=== PATIENT | male | born 1960 | race Caucasian/White ===

== ENCOUNTER → 2021-11-30 14:34 | Outpatient (BNVA) | payer MEDICARE, MEDICAID, SELFPAY | PROVIDERS: PCP Family Medicine; Visit Provider Internal Medicine Pulmonary Disease | DX: J43.1 Panlobular emphysema (principal); K21.9 Gastro-esophageal reflux disease without esophagitis; R06.00 Dyspnea, unspecified; R06.02 Shortness of breath; T78.40XA Allergy, unspecified, initial encounter; Z87.891 Personal history of nicotine dependence | CPT/HCPCS: 36415; 82785; 85025; 86003; 99214 ==

== ENCOUNTER 2021-12-09 11:47 | Outpatient (CLI) | payer MEDICARE, MEDICAID, SELFPAY ==
--- NOTE | 2021-12-09 12:55 | PFTS_ITS ---
Date of Study:12/09/21 Date of Dictation: MECHANICS: Forced vital capacity (FVC) is normal. Forced expiratory volume in one second (FEV1) is reduced. FEV1/FVC is reduced. FLOW VOLUME LOOP: Reduced flow at all lung volumes with significant scooping. LUNG VOLUMES: Total lung capacity (TLC) is increased. Residual volume (RV) is creased. DIFFUSING CAPACITY FOR CARBON MONOXIDE: Moderately reduced. INTERPRETATION: The postbronchodilator spirometry is consistent with moderate airflow obstruction. There is no significant postbronchodilator response. Lung volumes are consistent with hyperinflation and air trapping. Gas exchange (DLCO) is moderately reduced. MTDD
== END 2021-12-09 11:48 | disposition home or self-care (01) ==
LOC: RT 11:51
PROVIDERS: PCP Family Medicine; Visit Provider Internal Medicine Pulmonary Disease
DX: J43.1 Panlobular emphysema (principal); F17.210 Nicotine dependence, cigarettes, uncomplicated
CPT/HCPCS: 94060; 94618; 94726; 94729; J7611

== ENCOUNTER → 2022-02-01 10:50 | Outpatient (BNVA) | payer MEDICARE, MEDICAID, SELFPAY | PROVIDERS: PCP Family Medicine; Visit Provider Internal Medicine Pulmonary Disease | DX: R06.00 Dyspnea, unspecified (principal); J43.1 Panlobular emphysema; K21.9 Gastro-esophageal reflux disease without esophagitis; T78.40XA Allergy, unspecified, initial encounter; Z87.891 Personal history of nicotine dependence; G47.34 Idiopathic sleep related nonobstructive alveolar hypoventilation | CPT/HCPCS: 99214 ==

== ENCOUNTER → 2022-05-07 10:02 | Outpatient (BNVA) | payer MEDICARE, MEDICAID, SELFPAY | PROVIDERS: PCP Family Medicine; Visit Provider Internal Medicine Pulmonary Disease | DX: R06.00 Dyspnea, unspecified (principal); J43.1 Panlobular emphysema; K21.9 Gastro-esophageal reflux disease without esophagitis; Z87.891 Personal history of nicotine dependence; G47.33 Obstructive sleep apnea (adult) (pediatric) | CPT/HCPCS: 99214 ==

== ENCOUNTER 2022-07-21 08:40 | Outpatient (CLI) | payer MEDICARE, MEDICAID, SELFPAY ==
--- NOTE | 2022-07-21 08:45 | CT_ITS ---
WS: [id number] LDCT LUNG CANCER SCREENING TECHNIQUE: Noncontrast CT of the chest with coronal and sagittal reformatted images. CLINICAL INFORMATION: lung screening COMPARISON: None. DLP: 79.91 mGy.cm DIvol: Mean CTDIvol: 1.60 (mGy) All CT scans at [facility] use at least one of these dose optimization techniques: automat ed exposure control; mA and/or kV adjustment per patient size (includes targeted exams where dose is matched to clinical indication); or iterative reconstruction. FINDINGS: Advanced chronic emphysematous changes. Bulla formation lung apices LEFT greater than RIGHT. Large bu lla in the LEFT upper lobe measuring 12.8 x 6.7 CM. Normal caliber thoracic aorta. Aortic calcification. No mediastinal or hilar lymphadenopathy. No axil terence lymphadenopathy. Normal GE junction. Evidence of prior hernia repair in the upper abdomen. Mild disc space narrowing lower thoracic spine. Thoracic curve convex LEFT. Postoperative changes lower ce rvical spine partially visualized. Spiculated subpleural nodule RIGHT lower lobe medially measuring 16 mm in maximum dimension on the sa gittal imaging. Recommend further evaluation with PET/CT. Additional noncalcified 8mm nodule in the R IGHT upper lobe along the fissure. CT/CT lung screening [id number] IMPRESSION: LUNG-RADS: 4A-Probably Suspicious FOLLOW UP: PET/CT recommended
== END 2022-07-21 08:41 | disposition home or self-care (01) ==
LOC: RAD 08:40
PROVIDERS: PCP Family Medicine; Visit Provider Internal Medicine Pulmonary Disease
DX: Z12.2 Encounter for screening for malignant neoplasm of respiratory organs (principal); Z87.891 Personal history of nicotine dependence
CPT/HCPCS: 71271

== ENCOUNTER 2022-07-31 11:07 | Outpatient (CLI) | payer MEDICARE, MEDICAID, SELFPAY ==
--- NOTE | 2022-07-31 11:30 | PETR_ITS ---
PROCEDURE INFORMATION: Exam: PET/CT Skull Base to Mid-thigh Exam date and time: 07/31/2022 11:47 AM Age: 62 years old Clinical indication: Abnormal findings; Abnormal CT; Patient HX: HX of kidney cancer; Additional info: Suspicious lesions on CT lung lrads 4a, 07/21 CT lung: LABS AND CLINICAL REPORTS: Glucose: 108 mg/dl Treatment strategy for malignancy (PET staging): Initial Staging (PI) TECHNIQUE: Imaging protocol: Following at least four-hour fasting and following the injection of F-18-FDG, low dose CT images were obtained. Then, PET images were obtained. Attenuation corrected images were constructed using the CT scan. Fused images of PET and CT were reviewed. The standardized uptake values (SUV) reported below are maximum values within a region of interest, expressed in gm/ml. Exam includes orbital meatal line to mid-thigh. Radiopharmaceutical: 14.33 mCi F-18 FDG (Fluorodeoxyglucose), IV. Time of imaging post radiopharmaceutical administration: 45 minutes. Injection site: Not specified. COMPARISON: CT lung screening [id number] 07/21/2022 8:50 AM FINDINGS: Brain: Visualized brain has normal physiologic uptake. Pharynx: No abnormal uptake. Larynx: No abnormal uptake. Lungs, pleura and trachea: Severe emphysema. A bulla in the apex of the left upper lobe is 12 cm. The spiculated subpleural nodule in the right lower lobe medially is not FDG avid. Its SUV max is only 1.8 (series 3, image 60). Heart: Heart size is normal. Mediastinal space: No abnormal uptake. Liver: No abnormal uptake. Gallbladder and bile ducts: Post cholecystectomy. Pancreas: No abnormal uptake. Spleen: No abnormal uptake. Adrenal glands: No abnormal uptake. Kidneys and ureters: Posterior right nephrectomy. Stomach and bowel: Mild colonic diverticulosis without evidence of diverticulitis. The colon is otherwise unremarkable. No acute colonic distention or inflammation. Appendix: The appendix is normal in caliber without surrounding inflammation. Intraperitoneal and retroperitoneal spaces: No free air or free fluid in the abdomen or pelvis. Reproductive: Mild prostate enlargement. Vasculature: No abnormal uptake. Lymph nodes: No abnormal uptake. No lymphadenopathy in the head, neck, chest, abdomen, pelvis or extremities. Bones/joints: No metabolically active areas. Soft tissues: Marked increased FDG uptake in the masseter muscles. SUV max in the right masseter muscle is 11.5 , and SUV max in the left masseter muscle is 8.9. Moderate increased uptake in the temporalis muscles. SUV max in the right temporalis muscle is 8.9. SUV max in the left temporalis muscle is 5.6). The bilateral increased uptake within the muscles of mastication is consistent with clenching of the jaw (bruxism). PET/PET skulltothigh INITIAL [id number] IMPRESSION: 1. The spiculated subpleural nodule in the right lower lobe medially is not FDG avid. Its SUV max is only 1.8 (series 3, image 60). No evidence of lung cancer. 2. Severe bullous emphysema. 3. Post right nephrectomy. 4. Marked bilateral increased FDG uptake in the masseter and temporalis muscles, which is consistent with clenching of the jaw (bruxism).
== END 2022-07-31 11:08 | disposition home or self-care (01) ==
LOC: RAD 08-02 06:15
PROVIDERS: PCP Family Medicine; Visit Provider Internal Medicine Pulmonary Disease
DX: R91.8 Other nonspecific abnormal finding of lung field (principal); J43.9 Emphysema, unspecified; Z90.5 Acquired absence of kidney
CPT/HCPCS: 78815; A9552

== ENCOUNTER → 2022-11-09 13:27 | Outpatient (BNVA) | payer MEDICARE, MEDICAID, SELFPAY | PROVIDERS: PCP Family Medicine; Visit Provider Internal Medicine Pulmonary Disease | DX: J43.1 Panlobular emphysema (principal); K21.9 Gastro-esophageal reflux disease without esophagitis; Z87.891 Personal history of nicotine dependence; G47.33 Obstructive sleep apnea (adult) (pediatric); Z91.09 Other allergy status, other than to drugs and biological substances; R07.9 Chest pain, unspecified | CPT/HCPCS: 99214 ==

== ENCOUNTER 2022-12-17 10:32 | Outpatient (CLI) | payer MEDICARE, MEDICAID, SELFPAY ==
--- NOTE | 2022-12-17 | ECG_ITS ---
[facility] Test Date: 2022-12-17 Pat Name: Madi Warner Department: Room: Gender: Male Engagement Mgr: : 1960 Requested By: Robbie Martell Order Number: [id number] Marko MD: Irish Paredes M.D. Interpretive Statements NAME OF STUDY: EXERCISE SESTAMIBI STRESS TEST INDICATION: Shortness of Breath Baseline blood pressure of 150/89 mm Hg, heart rate 63 beats per minute and oxygen saturation 97%. EKG showed sinus rhythm, normal axis with RSR' in V1 suggestive of RV conduction delay. The patient exercised for 5 minutes and 3 seconds on a standard Daniel protocol. Patient attained a maximum heart rate of 153 beats per minute(96% of the maximum predicted heart rate) with a blood pressure at the peak exercise of 188/126 mm Hg. The EKG at the peak exercise revealed sinus tachycardia with no significant ST-T wave changes. Patient did not have any chest pain or any significant arrhythmis with the exercise During the recovery phase, there were no new changes. Blood pressure at the end of the recovery phase was 146/90 mm Hg with a heart rate of 66 beats per minute. CONCLUSION: 1. Normal EKG response to treadmill exercise. 2. No exercise-induced chest pain or cardiac arrhythmia. 3. Good exercise tolerance, attained a maximum of 7 METs. 4. Baseline hypertension with normal response to exercise. 5. Perfusion scan will be documented separately. Electronically Signed On 12-29-2022 17:53:27 CDT by Irish Paredes M.D. [id number]
[2022-12-17 10:51] VITALS: BMI 28.8
--- NOTE | 2022-12-17 10:52 | NMCV_ITS ---
NM venkata perf SPECT r/s* [id number] Madi Warner Age: 62 Gender: M : 1960 Exam Date: 12/17/2022 11:29 Ordering Phys: Robbie Sunshine MD Technologist: COLBY Castle Exam Location: [facility] Indications: SHORTNESS OF BREATH STRESS TEST Please see separate stress test report in [facility] for full findings IMAGE PROTOCOL Rest/Stress 1 Exercise Day Radiopharmaceutical Dose (mCi) Administration Site Administered by Rest: Tc-99m 10.5 IV Jerome Maxwell, AUTO REFINISHER Sestamibi Stress:Tc-99m 32.5 IV Jerome Maxwell, AUTO REFINISHER Sestamibi Rest: 17-Dec-2022 60 Discovery 630 Stress: 17-Dec-2022 15 Discovery 630 Radiopharmaceutical was injected at 86 % maximum heart rate. Images obtained in supine and prone position. SPECT RESULTS Technical Quality: Excellent Raw Data Analysis: Normal Image Corrections: No attenuation or motion correction applied Summed Stress Score: 2 Summed Rest Score: 2 Summed Difference Score: 1 PERFUSION FINDINGS Small sized perfusion abnormality of mild severity of mid to apical inferior whelan on rest images with improved tracer uptaker in stress images. FUNCTIONAL RESULTS (calculated via Gated SPECT) Stress Image LV EF (%): 59 Stress EDV (mL):103 TID: 1.17 Stress ESV (mL):42 FUNCTIONAL FINDINGS: The left ventricle is normal in size. Transient Ischemia Dilatation of 1.2. The left ventricular ejection fraction is normal with a value of 59%. There is normal left ventricular wall thickening. IMPRESSIONS 1. Myocardial perfusion imaging is normal. Attenuation artifact noted in inferior wall. 2. Overall left ventricular systolic function is normal without regional wall motion abnormalities, LVEF=59%. 3. EKG changes will be reported separately. 4. No coronary ischemia based on this study. Irish Paredes MD (Electronically Signed) Final Date: 25 December 2022 11:10 S
[2022-12-17 12:19] VITALS: BP 146/90; PULSE 64
== END 2022-12-17 10:33 | disposition home or self-care (01) ==
LOC: CDL 10:35
PROVIDERS: PCP Family Medicine; Visit Provider Internal Medicine Pulmonary Disease
DX: R06.02 Shortness of breath (principal); Z87.891 Personal history of nicotine dependence
CPT/HCPCS: 36415; 78452; 93017; 99214; A9500

== ENCOUNTER → 2023-03-11 09:55 | Outpatient (BNVA) | payer MEDICARE, SELFPAY | PROVIDERS: PCP Family Medicine; Visit Provider Internal Medicine Pulmonary Disease | DX: J44.9 Chronic obstructive pulmonary disease, unspecified (principal); Z87.891 Personal history of nicotine dependence; G47.33 Obstructive sleep apnea (adult) (pediatric); Z12.2 Encounter for screening for malignant neoplasm of respiratory organs | CPT/HCPCS: 99214 ==

== ENCOUNTER 2023-04-13 12:00 | Outpatient (CLI) | payer MEDICARE, SELFPAY | END 2023-04-13 12:01 | disposition home or self-care (01) | LOC: SLEEP 04-14 15:07 | PROVIDERS: PCP Family Medicine; Visit Provider Internal Medicine Pulmonary Disease | DX: G47.33 Obstructive sleep apnea (adult) (pediatric) (principal); G47.36 Sleep related hypoventilation in conditions classified elsewhere; J43.9 Emphysema, unspecified; R06.00 Dyspnea, unspecified | CPT/HCPCS: G0399 ==

== ENCOUNTER → 2023-11-08 15:14 | Outpatient (BNVA) | payer MEDICARE, SELFPAY | PROVIDERS: PCP Family Medicine; Visit Provider Orthopaedic Surgery | DX: M54.9 Dorsalgia, unspecified (principal); M48.062 Spinal stenosis, lumbar region with neurogenic claudication | CPT/HCPCS: 36415; 72110; 80053; 81001; 85025; 99204 ==

== ENCOUNTER → 2023-11-10 09:57 | Outpatient (BNVA) | payer MEDICARE, SELFPAY | PROVIDERS: PCP Family Medicine; Visit Provider Internal Medicine Pulmonary Disease | DX: R06.00 Dyspnea, unspecified (principal); J43.1 Panlobular emphysema; Z87.891 Personal history of nicotine dependence; T78.40XA Allergy, unspecified, initial encounter; G47.33 Obstructive sleep apnea (adult) (pediatric); Y99.9 Unspecified external cause status | CPT/HCPCS: 99214 ==

== ENCOUNTER 2023-12-05 12:34 | Inpatient (IN) | payer MEDICARE, SELFPAY ==
[2023-12-05] VITALS (27 sets, daily range): BP systolic 97–142; BP diastolic 48–94; PULSE 72–104; RESP 7–21; TEMP 36.4–36.8; O2SAT 90–99; BMI 28.0
--- NOTE | 2023-12-05 | XR_ITS ---
WS: [id number] Lumbar spine, C-arm fluoroscopy views, 12/05/2023 Clinical Data: ROSITA PICS Comparison: Lumbar spine, 11/08/2023 Findings: Dr. Merida performed a posterior lumbosacral fusion. XR/XR lumbar spine 2-3V* [id number] Impression: Posterior lumbosacral fusion.
[2023-12-05] MEDS: sodium chloride 0.9% 1,000 ML 30 ML IV (06:23)
[2023-12-05] MEDS: methadone 10 mg Tablet PO (06:25)
--- NOTE | 2023-12-05 06:34 | W.PM.OPSUD ---
Surgery/Procedure H&P Update DATE OF PROCEDURE: December 05, 2023 DATE H&P PERFORMED: 11/29/23 H&P UPDATE INFORMATION: I have reviewed H&P completed within last 30 days, I have examined patient prior to procedure and No changes to prior documentation PREOP DIAGNOSIS: Lumbar stenosis with neurogenic claudication PLANNED PROCEDURE: Operation Date: 12/05/23 07:00 Proposed Procedures p Spinal Fusion(Not Applicable) - Zac Merida DO s Posterior Lumbar Interbody Fusion(Not Applicable) - DO vickey Aguilera Lumbopelvic Fixation(Not Applicable) - DO vickey Aguilera Sacroiliac Joint Fusion open(Not Applicable) - DO vickey Aguilera Lumbar Spine Decompression Lumbar Decompression(Not Applicable) - Zac Merida DO
[2023-12-05] MEDS: ceFAZolin 2,000 MG in sodium chloride 0.9% (plus) 50 ML 100 MG IV ×3 (06:59→23:15)
[2023-12-05] MEDS: vancomycin 1,000 MG SDV 1000 MG XX (07:49)
[2023-12-05] MEDS: heparin, porcine 1,000 unit/mL INJ 10 mL 10000 UNIT IRRIGATION (07:50)
[2023-12-05] MEDS: lidocaine-epi 1% 20 mL INJ INJECTION (07:50)
--- NOTE | 2023-12-05 08:30 | ANES.PREANE2 ---
Pre-Anesthetic Assessment Height/Weight: Height 1.7 m Weight 81.193 kg Temp Pulse Resp BP Pulse Ox O2 Del Method 97.9 F 72 18 127/83 95 Room Air 12/05/23 06:09 12/05/23 06:09 12/05/23 06:25 12/05/23 06:09 12/05/23 06:09 12/05/23 06:10 Preop Diagnosis: Lumbar stenosis with neurogenic claudication Operation Date: 12/05/23 07:00 Proposed Procedures p Spinal Fusion(Not Applicable) - Zac Merida DO s Posterior Lumbar Interbody Fusion(Not Applicable) - Zac Merida DO s Lumbopelvic Fixation(Not Applicable) - Zac Merida DO s Sacroiliac Joint Fusion open(Not Applicable) - Zac Merida DO s Lumbar Spine Decompression Lumbar Decompression(Not Applicable) - Zac Merida DO Familial anesthetic complications: none Was Beta Markus taken within 24 hours: N/A Was Clonidine taken within 24 hours: N/A Last intake: Intake Last Liquid Date 12/05/23 Last Liquid Time 17:00 Last Solid Date 12/04/23 Last Solid Time 17:00 Social No alcohol and No tobacco (h/o smoking) Exam alert, oriented x 3 and regular rate & rhythm Airway Submandibular: within normal limits Cervical ROM: within normal limits Mallampati: Class II Dentition: false Pulmonary Chronic Obstructive Pulmonary Disease and Sleep Apnea GI Gastroesophageal Reflux Disease Metabolic Hyperlipidemia chronic steroid Musc/skel Lower Back Pain and Osteoarthritis/DJD Anesthetic Plan ASA status: 3 Anesthesia: General Other: Discussed a.line, transfusion and possible ICU admit. Medications/Allergies Home Medications Medication Instructions Recorded Confirmed Last Taken Type acyclovir 400 mg tablet 400 mg PO TID 08/07/21 12/05/23 12/05/23 History ascorbate calcium (vitamin C) 500 500 mg PO DAILY 08/07/21 12/02/23 12/02/23 History mg tablet atorvastatin 20 mg tablet 20 mg PO DAILY 08/07/21 12/05/23 12/04/23 History gabapentin 600 mg tablet 600 mg PO BID 08/07/21 12/05/23 12/05/23 History omeprazole 40 mg capsule,delayed 40 mg PO DAILY 08/07/21 12/05/23 12/05/23 History release promethazine 25 mg tablet 25 mg PO TID PRN Nausea 08/07/21 12/02/23 12/01/23 History tamsulosin 0.4 mg capsule 0.4 mg PO DAILY 08/07/21 12/05/23 12/05/23 History albuterol sulfate 90 mcg/actuation 2 puff inhalation Q6H PRN 02/28/23 12/05/23 12/05/23 Rx aerosol inhaler shortness of breath or wheezing #8.5 grams roflumilast 250 mcg tablet 250 mcg PO DAILY #30 tabs 02/28/23 12/05/23 12/05/23 Rx (Daliresp) fluticasone fur. 100 mcg-umeclid 1 inh inhalation DAILY #60 ea 04/18/23 12/05/23 12/05/23 Rx 62.5 mcg-vilant 25 mcg inhalat.powder (Trelegy Ellipta) guaifenesin 600 mg tablet, 600 mg PO Q12H PRN congestion #60 11/10/23 12/02/23 Unknown Rx extended release 12 hr (Mucinex) tabs prednisone 20 mg tablet 20 mg PO DAILY PRN sob 11/29/23 12/02/23 Unknown History sildenafil (pulm.hypertension) 20 20 mg PO DAILY 11/29/23 12/02/23 Unknown History mg tablet diphenhydramine HCl 25 mg capsule 25 mg PO BEDTIME PRN Sleep 12/02/23 12/05/23 12/04/23 History (Benadryl) Allergies Allergy/AdvReac Type Severity Reaction Status Date / Time No Known Allergies Allergy Verified 11/29/23 08:50 Current Medications Generic Name Dose Route Start Last Admin Trade Name Freq PRN Reason Stop Dose Admin Sodium Chloride 1,000 mls @ 30 mls/hr 12/05/23 06:00 12/05/23 06:23 Sodium Chloride 0.9% IV 12/06/23 05:59 30 mls/hr .Q24H JOSE R Administration PFSH Anesthesia Social History Smoking and tobacco/nicotine status: former use of tobacco/nicotine Quit status (tobacco/nicotine): has quit using Year quit tobacco: 2009 Former quit date comment: 0.5ppd x 30 years Data Anesthesia Blood Bank 12/05/23 06:15 Blood Type A Positive Rho(D) Type Rh positive Antibody Screen Negative Cardiac Studies: Sestamibi Stress Test (Cardiology) 12/17/22
[2023-12-05] MEDS: ceFAZolin 1,000 mg SDV 2000 MG (11:09)
--- NOTE | 2023-12-05 11:28 | PM.OP ---
Operative Report Date of procedure: December 05, 2023 Pre-op diagnosis: Lumbar stenosis with neurogenic claudication Post-op diagnosis: same Procedure done: 1.?L5/S1 interbody fusion with posterolateral fusion 2. Cage at L5/S1 3. Posterior fusion L3-pelvis 4.? Instrumentation L3-S1 5.? Lumbopelvic instrumentation 6. open right Sacral iliac fusion 7. open left sacral iliac fusion 8. L5-S1 laminectomy with facetectomies 9. L4-5 laminectomy with facetectomies 10. L3/4 laminectomy with facetectomies 11. use of computer navigation / stereotactic spine 12. use of autograft from same incision 13. allograft 14. Bone marrow aspirate from right iliac crest Surgeon: Zac Merida DO Estimated blood loss (mL): 700 Procedure: 1.?L5/S1 interbody fusion with posterolateral fusion 2. Cage at L5/S1 3. Posterior fusion L3-pelvis 4.? Instrumentation L3-S1 5.? Lumbopelvic instrumentation 6. open right Sacral iliac fusion 7. open left sacral iliac fusion 8. L5-S1 laminectomy with facetectomies 9. L4-5 laminectomy with facetectomies 10. L3/4 laminectomy with facetectomies 11. use of computer navigation / stereotactic spine 12. use of autograft from same incision 13. allograft 14. Bone marrow aspirate from right iliac crest Patient is brought to the operative suite.? After undergoing anesthesia, the patient had neuro monitoring attached.? Patient was then placed in the prone position on the Haider table.? All areas of impingement were well-padded.? Patient was then prepped and draped in the normal sterile fashion.? Skin incision was then made over the L3 to the sacrum using previous skin incision.? Subperiosteal dissection was made out to the transverse processes of L3 bilaterally, L4 bilaterally, L5 bilaterally and sacral ala bilaterally.? The [employer] bone marrow aspirate kit was used to aspirate bone marrow aspirate.? This was done by using the sharp probe to open up the bone.? Aspiration was performed and then the blunt probe was then used to dissect down to through the bone tunnel.? An aspirating well drawn back a millimeter approximately 20 cc of bone marrow aspirate was used.? Admixed with the allograft and autograft bone that will be used. Next tension was brought to placing the fiducial for the computer navigation.? 2 pins were placed into the right iliac crest.? The fiducial was attached.? The C-arm was brought in and information from the C arm was then linked to the computer used for placing the screws.? Next attention was brought to placing the pedicle screws.? This was done by using the gearshift probe linked to computer navigation.? The probe was used to identify the pedicle.? Then the pedicle feeler was used followed by placement of screw.? This was done at L3 bilaterally, L4 bilaterally, L5 bilaterally and S1 bilaterally. Next attension was brought to placing the iliac screws.? This was done using the sacral ala iliac technique.? The gearshift probe linked to computer navigation was then placed through the sacral ala into the sacroiliac joint into the iliac crest.? Next the pedicle feeler was used followed by the computer navigated tap.? And then the screw was passed a 100 mm screw was placed on the right side and a 100 mm screw was placed on the left side.? Both the screws were 9.5 mm in diameter. Next attension was brought to performing the open and sacral iliac fusion.? This was done by again using the gearshift probe linked to computer navigation.? Followed by pedicle feeler followed by placing a wire and then the drill drilled over the wire and then bone graft was packed into the sacroiliac joint and into the drill hole.? And the sacroiliac screw was then placed.? This technique was done on both the right and left side. Next attention was brought to performing the laminectomy of L5. This was done using the high-speed bur Kerrisons and curettes. Once the lamina was removed and then attention was brought to performing a partial facetectomy on the contralateral side. This was done again using the high-speed bur curettes and Kerrisons. The ligamentum flavum was taken down bilaterally from L5 to S1. Attention was then brought to the facet on the ipsilateral side. The facet was taken down. The s1 nerve was decompressed as it passed around the S1 pedicle. The laminectomy was done for purposes of decompressing the nerve as well as placement of the cage. The L5 nerve was identified as it traversed through the L5/s1 foramen. The thecal sac was identified and retracted. The L5/S1 disc base was identified. Using a knife the disc base was opened. And then sequential tierney were placed. The first shaver was a 6 and the last shaver was a 11. Using a pituitary and down going curette the endplates were scraped and disc material was removed from the space. Once adequate decompression of the disc base was felt to be had. Osteoamp sponge was packed into the anterior aspect of the disc base. Then a size 12 cage from [place] was placed after packing osteoamp into the cage. While placing the cage the thecal sac and S1 nerve was protected. C arm was used to ensure that the cages placed in the appropriate position. Patient was brought to doing the laminectomy and partial facetectomy's of L4-5. This was done by take down the lamina of L4 using high-speed bur Kerrison rongeurs. This was taken down medial aspect of facet joints bilaterally. The this was done using Kerrison high-speed bur. Ligamentum flavum was taken down from L4 for L5. The L4 nerve root traced out the L4-5 foramen bilaterally and the L5 nerve was traced around the L5 pedicle. This was done bilaterally as well. Next tension was brought to the L3-4. The laminectomy of L3 was performed using high-speed bur as well as Kerrison rongeur. The medial aspect of facet joints taken out and high-speed bur Kerrison rongeur. Ligamentum flavum was taken down from L3-L4. The medial aspect of facet joints were taken down the L3 nerve was traced out the L3-4 foramen bilaterally to be adequate decompressing the L4 nerve was traced around the L4 pedicles bilaterally. Attention was then brought to attaching the rods to the screws placed in the L3 bilaterally, L4 bilaterally, L5 bilaterally and S1 bilaterally.? This was then attached to the sacroiliac screw providing the lumbopelvic fixation.? Caps were torqued into position. Locking the construct in place. Wound was copiously irrigated and then attention was brought to decorticating the facets and transverse processes laterally.? Bone that was taken down from the lamina was used along with osteoamp fibers and sponges were packed into the lateral gutters along the facet joints.? This was done bilaterally. Wound was then closed in a layered fashion starting with the thoracolumbar fascia.? 0-vicryl was used the sub cutaneous tissue was closed with 2-0 vicryl and skin with 4-0 monocryl.? Glue was then used to seal the skin and a steril dressing was applied.? Patient was then placed in the supine position. The endotracheal tube was removed and patient was transferred to the PACU in stable condition.
--- NOTE | 2023-12-05 11:40 | PC.NURSE ---
ART line removed per protocol by Liz Max RN. Held pressure for ten minutes.
[2023-12-05] MEDS: fentaNYL 50 mcg/mL INJ 2mL IVP (11:50)
--- NOTE | 2023-12-05 13:47 | ANE.PACU2 ---
Inpatient post-anesthesia follow up: Airway intact: Yes Vital signs: Temperature 97.6 F Pulse Rate 88 Respiratory Rate 16 Blood Pressure 124/94 Pulse Oximetry 90 Oxygen Delivery Me thod Nasal Cannula Oxygen Flow Rate 2.5 Fraction of Inspir ed Oxygen Hydration adequate: Yes Nausea and vomiting: No Pain level: 3 Mental status: Baseline
[2023-12-05] MEDS: ketorolac 30 mg/mL INJ IVP ×2 (14:06→20:57)
[2023-12-05] MEDS: acyclovir 400 mg Tablet PO ×2 (15:19→20:45)
[2023-12-05] MEDS: HYDROcodone-acetaminophen 5-325 mg Tablet PO ×3 (15:19→23:16)
[2023-12-05] MEDS: lactated ringers 1,000 ML 90 ML IV (15:19)
[2023-12-05] MEDS: ipratropium-albuterol 3 mL Neb INHALATION ×2 (15:38→20:21)
[2023-12-05] MEDS: gabapentin 300 mg Capsule 600 MG PO (18:18)
[2023-12-05] MEDS: docusate sodium 100 mg Capsule PO (18:18)
[2023-12-05] MEDS: morphine 4 mg/mL SDV 1 mL 2 MG IVP (18:48)
[2023-12-05] MEDS: budesonide 0.5 mg/2 mL Neb INHALATION (20:20)
[2023-12-05] MEDS: promethazine 25 mg Tablet PO (20:45)
[2023-12-06] VITALS: BP 109/72; PULSE 94; RESP 18; TEMP 36.6; O2SAT 94
[2023-12-06 01:02] LABS: Hematocrit 31.4 % (37-53)
[2023-12-06] MEDS: lactated ringers 1,000 ML 90 ML IV (01:39)
[2023-12-06 04:18] VITALS: BP 104/66; PULSE 101; RESP 17; TEMP 36.9; O2SAT 90
[2023-12-06] MEDS: HYDROcodone-acetaminophen 5-325 mg Tablet PO (06:26)
[2023-12-06] MEDS: ceFAZolin 2,000 MG in sodium chloride 0.9% (plus) 50 ML 100 MG IV (06:32)
[2023-12-06 08:00] VITALS: BP 125/76; PULSE 110; RESP 18; TEMP 36.5; O2SAT 93
--- NOTE | 2023-12-06 08:05 | PM.DCS ---
Discharge Providers Date of Admission: 12/05/23 12:34 Date of Discharge: December 06, 2023 Attending Provider at Admission: Zac Merida DO Attending Provider at Discharge: Zac Merida DO Primary Care Provider: Peter Blackburn Reason for Visit Reason for Visit: M48.062 Physical Exam Narrative: Patient sitting up pain in control. Eating breakfast. Complaining of itching milligrams Benadryl Urinary Catheter Management: Melgar: Cath Placed During This Visit: yes Reason for Continuing Indwelling Catheter: Perioperative Use in Selected Surgeries Urinary Catheter Date of Insertion: 12/05/23 Urinary Catheter Time of Insertion: 07:20 Discharge Data Studies Completed and Pending Pending at discharge Category Date Time Status C-arm Fluoroscopy [id number] Routine Exams 12/05/23 05:46 Taken Retype for Patiets ABO/Rh Routine Lab 12/05/23 07:35 Ordered Laboratory Results Hgb 10.50 g/dL (11.27-16.99) L 12/06/23 00:49 Hct 31.4 % (37-53) L 12/06/23 00:49 Blood Type A Positive 12/05/23 06:15 Rho(D) Type Rh positive 12/05/23 06:15 Antibody Screen Negative 12/05/23 06:15 Vitals Last Vital Signs Temp 98.4 F 12/06/23 04:18 Pulse 101 H 12/06/23 04:18 Resp 17 12/06/23 04:18 BP 104/66 12/06/23 04:18 Pulse Ox 90 12/06/23 04:18 O2 Del Method Room Air 12/06/23 04:18 O2 Flow Rate 3 12/05/23 15:33 Discharge Plan Discharge Patient Disposition: Home Condition: Stable Prescriptions: New hydrocodone-acetaminophen 5-325 mg tablet 1 - 2 tab PO .Q4-6H Qty: 40 0RF Continued promethazine 25 mg tablet 25 mg PO TID PRN (Reason: Nausea) atorvastatin 20 mg tablet 20 mg PO DAILY omeprazole 40 mg capsule,delayed release(DR/EC) 40 mg PO DAILY gabapentin 600 mg tablet 600 mg PO BID tamsulosin 0.4 mg capsule 0.4 mg PO DAILY acyclovir 400 mg tablet 400 mg PO TID ascorbate calcium (vitamin C) 500 mg tablet 500 mg PO DAILY guaifenesin [Mucinex] 600 mg tablet extended release 12hr 600 mg PO Q12H PRN (Reason: congestion) Qty: 60 2RF prednisone 20 mg tablet 20 mg PO DAILY PRN (Reason: sob) sildenafil (pulm.hypertension) 20 mg tablet 20 mg PO DAILY albuterol sulfate 90 mcg/actuation HFA aerosol inhaler 2 puff inhalation Q6H PRN (Reason: shortness of breath or wheezing) Qty: 8.5 6RF Daliresp 250 mcg tablet 250 mcg PO DAILY Qty: 30 3RF Trelegy Ellipta 100-62.5-25 mcg blister with device 1 inh inhalation DAILY Qty: 60 4RF diphenhydramine HCl [Benadryl] 25 mg Capsule 25 mg PO BEDTIME PRN (Reason: Sleep) Discharge Orders: Discharge Order (Routine); Ordered 12/06/23 Ordered By: Zac Merida Discharge Diet: Advance as tolerated Discharge Activity: Limit activity as instructed Patient Instructions: Opioid Safety Activity Restrictions/Additional Instructions: Thank you for [facility] for your care! The following is a list of instructions, from your provider, to follow upon your discharge to ensure you have the optimal recovery from your recent injury orsurgery. Follow-up care is a patrick part of your treatment and safety. Be sure to make and go to all appointments, and call your doctor if you are having problems. If you do not already have a follow-up appointment made, call Dr. Merida office in the next 1-3 days to make follow up appointment for 2 weeks at [phone]. It is also a good idea to know your test results and keep a list of the medicines you take. Medications will be prescribed for you at your provider's discretion. These medications are to be used as instructed; if they are taken more often that prescribed they will not be refilled early and in most cases will not be refilled at all. > When a refill is needed,you should contact cassandra montero 2-3 business days before your prescription runs out. Medications will NOT be refilled by [facility] lat[employer] operator providers after hours! > Many pain medications contain Tylenol (Acetaminophen). Do not consume more than 4,000 mg of Tylenol per day in total with any combination ofmedications. > Pain medications can cause constipation. Please use an over the counter stool softener as directed, while taking pain medications. Consulty our local pharmacist with questions or recommendations on stool softeners. If constipation persists, contact our office or your primary care provider. > While under our care,you are not to receive pain medications or other controlled substances from any other provider unless our office is notified and approves. Any attempts to do so will result in refusal to prescribe any further pain medications and possible dismissal from our practice. ? Will leave dressing on for 7 days to the follow-up in clinic and will change the dressing in clinic. starting would include; An increase in redness, swelling, or discharge, a foul odor present around the incision, and/or a fever greater than 101 ?F ? Showering is permitted, however we ask that you do not take a bath, sit in a whirlpool / Jacuzzi, or go swimming for 1 month. For only the first 2 days after surgery, lt wilt be necessary for you to cover your wound/dressing with plastic and tape to keep it dry. ? Walking is essential for the healing process after surgery. We would like you to slowly advance your walking. This should be done on relatively flat clear ground (inside or out) or can be done on a treadmill. Remember this goal does not have to happen all at once, slowly increase your distance and duration. This can be broken into more more than one walk per day as tolerated. Patients who walk as directed after surgery rarely require Physical Therapy. In the unlikely event this issue arises your provider will direct hospital staff to make the appropriate arrangements. ? No lifting over 5 pounds {a gallon of milk) or bending/twisting until further notice. Each of these activities places an unnecessary amount of stress onto the body and can impede the delicate healing process. > Instead of bending at the waist, keep your back straight and bend at the knees. > Instead of twisting your torso, keep your back straight and turn your entire body with your feet. ? You may sleep in any position which makes you comfortable. Many patients find comfort sleeping in a reclining chair. It is not abnormal to have difficulty sleeping for the first several weeks following your surgery. We recommend trying Benadry! or Tylenol PM as directed to help with your sleeping difficulties. Both medications are over the counter and available withoutprescription. ? NO SMOKING!!! Smoking dramatically increases the probability of developing postoperative wound infections. ? Common complaints after lumbar and/or thoracic spine surgery include, but are not limited to: numbness and/or tingling in the legs, pain around the incision and surrounding tissues, muscle spasms, or stiffness of the middle to low back. Contact our office if these symptoms persist or if an acute change occurs. ? No driving for the first 3-5days, and not while taking narcotics until seen at your follow-up appointment and cleared. There are no restrictions for riding on short trips, however if you take a longer trip, arrangements should be made to make regular stops to get out of the vehicle and stretch . ? Swelling is an unfortunate event that will take place with any surgery and is the primary source of your postoperative discomfort. While walking and regular approved activities helps control inflammation, there are additional steps you can take to minimizeswelling. > Place ice over the surgical site and surrounding tissue for twenty minutes, followed by applying a low/medium heat (heating pad) for an additional twenty minutes every 1-2 hours as needed for painrelief. > You may use of over the counter anti-inflammatory medications (Ibuprofen, Motrin, Aleve, Advil, etc) as directed on the package label. These types of medicines wm significantly reduce the amount of discomfort you experience after surgery from swelling. It should be noted that if you have and allergy to any of these medications, or a history of ulcers or kidney disease you should consult you primary care provider prior to starting these medications. Discharge Attestations Time Spent in Discharge Care*: less than 30 min Quality Metrics Clinical Quality Measures [ No reported AMI, CVA or VTE this stay] Coding Level of Care Code Acute Code for Chg Maris
[2023-12-06 08:19] VITALS: PULSE 108; RESP 18; O2SAT 94
[2023-12-06] MEDS: budesonide 0.5 mg/2 mL Neb INHALATION (08:19)
[2023-12-06] MEDS: ipratropium-albuterol 3 mL Neb INHALATION (08:19)
--- NOTE | 2023-12-06 08:25 | PC.SOCIAL ---
Case Managment Received a walker order for patient. Called and patient is agreeable to using HOME. Choice sheet completed and placed in chart. Faxed walker order and supporting documentation to HOME @ this time.
[2023-12-06] MEDS: ascorbic acid 500 mg Tablet PO (08:49)
[2023-12-06] MEDS: atorvastatin 40 mg Tablet 20 MG PO (08:49)
[2023-12-06] MEDS: acyclovir 400 mg Tablet PO (08:49)
[2023-12-06] MEDS: gabapentin 300 mg Capsule 600 MG PO (08:49)
[2023-12-06] MEDS: pantoprazole DR 40 mg Tablet PO (08:49)
[2023-12-06] MEDS: diphenhydrAMINE 50 mg Capsule PO (08:49)
[2023-12-06] MEDS: docusate sodium 100 mg Capsule PO (08:50)
[2023-12-06] MEDS: tamsulosin 0.4 mg Capsule 0.400000000000000022 MG PO (08:50)
--- NOTE | 2023-12-06 09:26 | PC.CHAP ---
Pastoral Care Encounter/Spiritual Assessment Type of Contact [] Declined research psychologist visit [] Patient/Family/Request visit [] Outpatient visit [] Follow-up visit [] Physician referral [] Code/Alert [x] Routine visit [] Staff referral [] Actively dying [] Patient sleeping [x] Family support [] [] Out of room [] Palliative care [] [] Receiving care in room [] Pre-surgical visit [] Trauma [] Long length of stay [] ICU visit [] Other: Relational/Emotional Strength [x] Patient feels connected with others/family/visitors/staff [] Distress [] Loneliness/isolation [] Abandonment Spirituality of Patient [x] Person of Evie [] Attends Confucianist of their Evie [x] Believes in Prayer [] Reads Bible or Episcopal materials [] There are Spiritual issues to be addressed Door Serviceman Interventions [x] Prayer [x Active listening [] Non-anxious presence [x] Spiritual/emotional support [] Crisis/trauma care [] Spiritual counseling [] Bereavement support [] Provided bereavement packet [] Provided Bible/devotional materials [] Provided toy/stuffed animal, coloring book to patient or family member [] Provided Communion [] Anointing/[place] [] Salvation [x] Completed spiritual assessment [] Other: Impact on Illness or Injury [] Angry [] Fearful [] Anxious [] Often cries [] Exhaustion [] Unable to work [] Unable to attend taoism [] Unable to walk/stand [] Unable to read [] Unable to drive [] Unable to eat/drink [] Unable to sleep [] Unable to be with family [] Patient intubated [] Other: Summary Time spent with patient 5 min
== END 2023-12-06 09:34 | disposition home or self-care (01) | DRG 455 ==
LOC: MEDSURG 12-06 06:12
PROVIDERS: Admitting Provider Orthopaedic Surgery; PCP Family Medicine; Visit Provider Orthopaedic Surgery
PROC: 0SG30AJ Fusion of Lumbosacral Joint with Interbody Fusion Device, Posterior Approach, Anterior Column, Open Approach (ICD-10-PCS; principal; 2023-12-05 07:00)
PROC: 0SG30AJ Fusion of Lumbosacral Joint with Interbody Fusion Device, Posterior Approach, Anterior Column, Open Approach (ICD-10-PCS; CPT 22612; 2023-12-05 07:00)
PROC: 0SG30AJ Fusion of Lumbosacral Joint with Interbody Fusion Device, Posterior Approach, Anterior Column, Open Approach (ICD-10-PCS; 2023-12-05 07:00)
PROC: 0SG30AJ Fusion of Lumbosacral Joint with Interbody Fusion Device, Posterior Approach, Anterior Column, Open Approach (ICD-10-PCS; CPT 27280; 2023-12-05 07:00)
PROC: 0SG30AJ Fusion of Lumbosacral Joint with Interbody Fusion Device, Posterior Approach, Anterior Column, Open Approach (ICD-10-PCS; CPT 63005; 2023-12-05 07:00)
DX: M48.062 Spinal stenosis, lumbar region with neurogenic claudication (principal); J44.9 Chronic obstructive pulmonary disease, unspecified; G47.30 Sleep apnea, unspecified; K21.9 Gastro-esophageal reflux disease without esophagitis; E78.5 Hyperlipidemia, unspecified; Z79.52 Long term (current) use of systemic steroids; Z87.891 Personal history of nicotine dependence
CPT/HCPCS: 36415; 51702; 72100; 76000; 85014; 85018; 86850; 86900; 94640; 97116; 97162; C1713; J0690; J1100; J1170; J1644; J1885; J2250; J2270; J2371; J2405; J2704; J3010; J3370; J3490; J7030; J7120; J7626; J8499; P9045; Q0163; Q0169

== ENCOUNTER → 2023-12-20 08:49 | Outpatient (BNVA) | payer MEDICARE, SELFPAY | PROVIDERS: PCP Family Medicine; Visit Provider Orthopaedic Surgery | DX: Z98.1 Arthrodesis status (principal) | CPT/HCPCS: 99024 ==

== ENCOUNTER → 2024-01-10 08:59 | Outpatient (BNVA) | payer MEDICARE, SELFPAY | PROVIDERS: PCP Family Medicine; Visit Provider Orthopaedic Surgery | DX: Z98.1 Arthrodesis status (principal) | CPT/HCPCS: 72100; 99024 ==

== ENCOUNTER 2024-02-09 15:13 | Outpatient (CLI) | payer MEDICARE, SELFPAY ==
--- NOTE | 2024-02-09 16:00 | CT_ITS ---
WS: [id number] CT chest wo con [id number] HISTORY: F/U Nodule - Evaluation for LVR- Endob Valve TECHNIQUE: Axial imaging performed through the thorax. Coronal and sagittal reformats are submitted. All CT scans at [facility] use at least one of these dose optimization techniques: automated exposure control; mA and/or kV adjustment per patient size (includes targeted exams where dose is mat ched to clinical indication); or iterative reconstruction. CONTRAST: None DLP: 440.31 mGy.cm COMPARISON: 10/20/2023 Lungs and central airway: Advanced bullous emphysema. Large bulla noted bilaterally but greater on th e RIGHT. Previously described scattered asymmetries and opacifications have resolved. No residual pne umonia. 5 mm nodule along the RIGHT minor fissure. Pleura: Normal. No pleural effusion. Heart and pericardium: Normal size heart with no pericardial effusion. Mediastinum and ela: No mediastinum or hilar adenopathy. Vessels: Mild atherosclerosis aorta. No aneurysm. Normal size pulmonary artery. Chest wall and lower neck: No soft tissue masses. Upper abdomen: Prior RIGHT nephrectomy. Prior cholecystectomy. Moderate calcification in the splenic artery. Osseous structures: Degenerative spondylitic changes. No osseous destruction. CT/CT chest wo con [id number] IMPRESSION: 1. Complete resolution of the previously described multi lobar pneumonia/pneum onitis. 2. Severe bullous emphysema. 3. Stable minor fissure nodule which are typically benign. 4. Prior cholecystectomy and RIGHT nephrectomy.
== END 2024-02-09 15:14 | disposition home or self-care (01) ==
LOC: RAD 15:13
PROVIDERS: PCP Family Medicine; Visit Provider Internal Medicine Critical Care Medicine
DX: J43.9 Emphysema, unspecified (principal); R91.1 Solitary pulmonary nodule; J43.1 Panlobular emphysema; R06.00 Dyspnea, unspecified; Z90.49 Acquired absence of other specified parts of digestive tract; Z90.5 Acquired absence of kidney
CPT/HCPCS: 71250

== ENCOUNTER → 2024-02-23 07:46 | Outpatient (BNVA) | payer MEDICARE, SELFPAY | PROVIDERS: PCP Family Medicine; Visit Provider Orthopaedic Surgery | DX: Z98.1 Arthrodesis status (principal) | CPT/HCPCS: 72100; 99024 ==

== ENCOUNTER → 2024-04-05 07:54 | Outpatient (BNVA) | payer MEDICARE, SELFPAY | PROVIDERS: PCP Family Medicine; Visit Provider Internal Medicine Critical Care Medicine | DX: R06.00 Dyspnea, unspecified (principal); J43.1 Panlobular emphysema; J43.9 Emphysema, unspecified; R91.1 Solitary pulmonary nodule; G47.33 Obstructive sleep apnea (adult) (pediatric); G47.34 Idiopathic sleep related nonobstructive alveolar hypoventilation | CPT/HCPCS: 99214 ==

== ENCOUNTER → 2024-05-24 08:54 | Outpatient (BNVA) | payer MEDICARE, SELFPAY | PROVIDERS: PCP Family Medicine; Visit Provider Orthopaedic Surgery | DX: Z98.1 Arthrodesis status (principal) | CPT/HCPCS: 72100; 99213 ==

== ENCOUNTER → 2024-11-20 10:42 | Outpatient (BNVA) | payer MEDICARE, SELFPAY | PROVIDERS: PCP Family Medicine; Visit Provider Orthopaedic Surgery | DX: Z98.1 Arthrodesis status (principal) | CPT/HCPCS: 72100; 99213 ==